=== PATIENT | female | born 1985 ===

== ENCOUNTER 2018-01-20 15:33 | Emergency (ER) | payer SELFPAY ==
[2018-01-20 17:05] LABS: BASO # 0.1 K/uL (0.0-0.2); BASO % 0.6 % (0.0-2.0); EOS % 0.1 % (0.0-4.0); HEMOGLOBIN 13.5 g/dL (11.0-16.0); LYMPH # 2.6 K/uL (1.0-4.3); LYMPH % 22.5 % (20.0-40.0); MEAN CELL VOLUME 85.3 fL (81.0-99.0); MEAN CORPUSCULAR HEMOGLOBIN 28.6 pg (27.0-31.0); MEAN CORPUSCULAR HGB CONC 33.5 g/dL (33.0-37.0); MEAN PLATELET VOLUME 9.2 fL (7.2-11.7); MONO # 0.7 K/uL (0.0-0.8); MONO % 6.3 % (0.0-10.0); NEUT # 8.1 K/uL (1.8-7.0); NEUT % 70.5 % (50.0-75.0); NRBC % 0.1 % (0.0-2.0); RBC 4.71 Mil/uL (3.80-5.20); RED CELL DISTRIBUTION WIDTH 14.1 % (11.5-14.5); WHITE BLOOD COUNT 11.4 K/uL (4.8-10.8)
[2018-01-20 17:09] LABS: HCG,QUALITATIVE URINE NEGATIVE (NEGATIVE)
[2018-01-20 17:12] LABS: PARTIAL THROMBOPLASTIN TIME 28 SECONDS (21-34); PROTHROMBIN TIME 11.4 SECONDS (9.7-12.2)
[2018-01-20 17:15] LABS: SQUAMOUS EPITHIAL 35 /hpf (0-5); URINE BACTERIA MOD (<OCC); URINE BILIRUBIN NEGATIVE (NEGATIVE); URINE CLARITY Hazy (Clear); URINE COLOR Yellow (YELLOW); URINE GLUCOSE (UA) NORMAL (Normal); URINE LEUKOCYTE ESTERASE 3+ Leu/uL (Negative); URINE PROTEIN NEGATIVE (NEGATIVE)
[2018-01-20 17:17] LABS: ALB/GLOB RATIO 1.2 (1.0-2.1); ALBUMIN 4.5 g/dL (3.5-5.0); ALT/SGPT 59 U/L (9-52); AST/SGOT 42 U/L (14-36); BLOOD UREA NITROGEN 14 mg/dL (7-17); CALCIUM 9.7 mg/dl (8.6-10.4); GFR AFRICAN-AMERICAN > 60; GFR NON-AFRICAN AMERICAN > 60
[2018-01-20 17:19] LABS: URINE BLOOD 1+ (NEGATIVE)
[2018-01-20 17:32] LABS: D DIMER < 200 ng/mlDDU (0-243)
[2018-01-20 17:35] LABS: BARBITURATES, UR NEGATIVE (NEGATIVE); BENZODIAZEPINES, UR NEGATIVE (NEGATIVE); OPIATES, UR NEGATIVE (NEGATIVE); PHENCYCLIDINE, UR NEGATIVE (NEGATIVE)
[2018-01-20 17:41] VITALS: O2SAT 100
--- NOTE | 2018-01-20 18:02 | CT ---
PROCEDURE: CT HEAD WITHOUT CONTRAST. HISTORY: Headaches COMPARISON: Comparison made with prior MRI of the brain and internal auditory canals dated 08/17/2016. TECHNIQUE: Axial computed tomography images were obtained through the head/brain without intravenous contrast. Radiation dose: Total exam DLP = 947.12 mGy-cm. This CT exam was performed using one or more of the following dose reduction techniques: Automated exposure control, adjustment of the mA and/or kV according to patient size, and/or use of iterative reconstruction technique. FINDINGS: HEMORRHAGE: No acute parenchymal, subarachnoid or extra-axial the intracranial hemorrhage. BRAIN: No evidence of large acute infarct. 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 VENTRICLES: No obstructive hydrocephalus. CALVARIUM: Calvarium appears grossly unremarkable. PARANASAL SINUSES: Minor mucosal thickening seen within 1 or 2 left posterior ethmoid air cells MASTOID AIR CELLS: Unremarkable as visualized. No inflammatory changes. OTHER FINDINGS: None. IMPRESSION: No acute intracranial hemorrhage. 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 .
--- NOTE | 2018-01-20 19:01 | C.PDOC ---
Time Seen by Provider: 01/20/18 16:18 Chief Complaint (Nursing): Chest Pain History Per: Patient Onset/Duration Of Symptoms: Days (few) Current Symptoms Are (Timing): Still Present Severity: Moderate Location Of Discomfort (Image): 1 - pain Quality: "Pain" Associated Symptoms: Other (Headache and Anxiety) Modifying Factors: Other Indicated Below Exacerbating Factors: Movement Additional History Per: Prior Records Past Medical History Reviewed: Historical Data, Nursing Documentation, Vital Signs Vital Signs: Last Vital Signs Temp 97.7 F 01/20/18 15:40 Pulse 80 01/20/18 17:30 Resp 20 01/20/18 17:30 BP 163/89 H 01/20/18 17:30 Pulse Ox 100 01/20/18 17:30 - Medical History PMH: Anxiety, Asthma, CVA (partial), HTN, Migraine (2 yrs), Seizures (2yrs ago x 1) Surgical History: Appendectomy Family History: States: Unknown Family Hx - Social History Hx Tobacco Use: No Hx Alcohol Use: No Hx Substance Use: No - Immunization History Hx Tetanus Toxoid Vaccination: No Hx Influenza Vaccination: No Hx Pneumococcal Vaccination: No Review Of Systems Except As Marked, All Systems Reviewed And Found Negative. Constitutional: Negative for: Fever, Weakness Cardiovascular: Positive for: Chest Pain Respiratory: Negative for: Shortness of Breath, Hemoptysis Gastrointestinal: Negative for: Vomiting, Abdominal Pain, Diarrhea Genitourinary: Negative for: Dysuria Musculoskeletal: Negative for: Neck Pain Skin: Negative for: Rash Neurological: Positive for: Numbness (perio-oral and in hands), Headache. Negative for: Weakness Psych: Positive for: Anxiety. Negative for: Suicidal ideation Physical Exam - Physical Exam Appears: Non-toxic, No Acute Distress, Other (Anxious) Skin: Normal Color, Warm, Dry, No Rash Head: Atraumatic, Normacephalic Eye(s): bilateral: PERRL, left: Other (unable to abduct past mid-line. 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 ) Neck: Normal ROM, No Midline Cervical Tenderness, No Step Off Deformity, Supple Chest: Symmetrical, No Deformity, Tenderness (right), No Ecchymosis, No Subcutaneous Emphysema Cardiovascular: Rhythm Regular Respiratory: Normal Breath Sounds, No Accessory Muscle Use Gastrointestinal/Abdominal: Soft, No Tenderness Back: No CVA Tenderness, No Vertebral Tenderness Extremity: Normal ROM, No Pedal Edema, No Calf Tenderness Pulses: Left Radial: Normal, Right Radial: Normal Neurological/Psych: Oriented x3, Normal Speech, Normal Cognition, No Cerebellar Signs, Normal Motor ED Course And Treatment - Laboratory Results Result Diagrams: 01/20/18 17:00 01/20/18 17:00 Lab Interpretation: No Acute Changes Urine POC: Negative ECG: Interpreted By Me, Viewed By Me ECG Rhythm: Sinus Rhythm ECG Interpretation: No Acute Changes Rate From EC O2 Sat by Pulse Oximetry: 100 Pulse Ox Interpretation: Normal - Radiology CXR: Interpreted by Me, Viewed By Me CXR Interpretation: Yes: No Acute Disease - CT Scan/US CT head Other Rad Studies (CT/US): Read By Radiologist, Radiology Report Reviewed CT/US Interpretation: IMPRESSION: No acute intracranial hemorrhage. 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 . Disposition Counseled Patient/Family Regarding: Studies Performed, Diagnosis, Need For Followup, Rx Given - Disposition Referrals: Blaise Alejandre DO [Staff Provider] - Chi Guzmán MD [Staff Provider] - Disposition: HOME/ ROUTINE Disposition Time: 19:04 Condition: IMPROVED Additional Instructions: Follow up with your doctor and with a Neurologist for further evaluation and treatment. Return to the ER if you develop weakness, vomiting, shortness of breath, worsening of symptoms or if you have any other concerns. Prescriptions: Acetaminophen [Tylenol Extra Strength] 2 tab PO Q6 PRN #30 tablet PRN Reason: Pain, Moderate (4-7) Instructions: Cysts in the Brain, Chest Pain That Is Not Caused by the Heart ( [place]) Forms: General Discharge Instructions - Clinical Impression Clinical Impression: Pineal gland cyst, Non-cardiac chest pain
[2018-01-20 19:24] VITALS: BP 125/77; PULSE 93; RESP 18; TEMP 98.1
--- NOTE | 2018-01-22 23:23 | CARD ---
APPROVED REPORT EKG Measurement Heart [id number] <Conclusion> Normal sinus rhythm Normal ECG
== END 2018-01-20 19:23 | disposition home or self-care (01) ==
LOC: C.ER 15:33
DX: R07.89 Other chest pain (principal); G93.0 Cerebral cysts
CPT/HCPCS: 70450; 71046; 80053; 81001; 83735; 84484; 84703; 85025; 85378; 85610; 85730; 93005; 99285; G0480

== ENCOUNTER 2018-12-10 08:56 | Outpatient (CLI) | payer OTHER | END 2018-12-10 08:57 | disposition home or self-care (01) | LOC: C.LAB 08:56 | DX: E11.9 Type 2 diabetes mellitus without complications (principal) ==